=== PATIENT | male | born 1970 | race African-American/Black ===

== ENCOUNTER 2017-09-30 17:07 | Inpatient (IN) ==
[2017-09-30] MEDS ORDERED: SODIUM CHLORIDE 0.9% 500 ML IV STA (17:34)
[2017-09-30 17:41] LABS: Basophils # 0.1 10*3/uL (0.0-0.2); Basophils % 0.6 % (0.0-0.8); Eosinophils % 0.2 % (0.00-10.9); Hematocrit 52.4 VOL% (42.0-52.0); Hemoglobin 17.6 GM/DL (14.0-18.0); Immature Granulocytes % 0.6 %; Lymphocytes # 1.1 10*3/uL (1.4-4.0); Lymphocytes % 6.4 % (21.2-54.2); Mean Corpuscular HGB Conc 33.6 GM/DL (32-36); Mean Corpuscular Hemoglobin 29 PG (27-34); Mean Corpuscular Volume 87.6 FL (87-102); Mean Platelet Volume 11.3 FL (9.6-12.0); Monocytes # 2.1 10*3/uL (0.11-0.8); Monocytes % 12.4 % (1.7-12.7); Neutrophils # 13.5 10*3/uL (1.4-7.4); Neutrophils % 79.8 % (38.7-73.9); Platelet Count 201 T/CUMM (130-400); Red Blood Count 5.98 MC/CUMM (3.8-5.5); Red Cell Distribution Width 17.2 % (9.3-17.3)
[2017-09-30 18:03] LABS: Alanine Aminotransferase 37 U/L (16-61); Albumin 3.4 G/DL (3.4-5.0); Alkaline Phosphatase 235 U/L (45-117); Aspartate Amino Transferase 79 U/L (0-37); Blood Urea Nitrogen 21 MG/DL (7-18); Calcium 8.9 MG/DL (8.5-10.1); Glucose 102 MG/DL (74-106); Osmolality,Calculated 277.7 MOS/KG (273-304); Potassium 3.5 MMOL/L (3.5-5.1); Sodium 138 MMOL/L (136-145); Total Protein 7.9 G/DL (6.4-8.3)
[2017-09-30] MEDS ORDERED: ALBUTEROL NEB SOLN 5 MG/ML 20 ML/BOTTLE CONT NEB STA (18:26)
[2017-09-30] MEDS ORDERED: ASPIRIN EC 325 MG TABLET PO STA (18:26)
[2017-09-30] MEDS ORDERED: methylPREDNISolone SOD SUC 125 MG/2 ML VIAL IV STA (18:26)
[2017-09-30] MEDS ORDERED: ENOXAPARIN 100 MG/ML SYRINGE SUBCUT STA (18:26)
[2017-09-30] MEDS ORDERED: FUROSEMIDE 20 MG/2 ML VIAL IV STA (18:27)
[2017-09-30] MEDS ORDERED: ENOXAPARIN 60 MG/0.6 ML SYRINGE ONE (18:32)
[2017-09-30 18:35] LABS: Lactic Acid 5.7 MMOL/L (0.4-2.0)
[2017-09-30] MEDS ORDERED: SODIUM CHLORIDE 0.9% 100 ML IV ONE (19:14)
[2017-09-30] MEDS: cefTRIAXone 1,000 MG in SYRINGE 1 EACH IV SCH (19:17)
[2017-09-30] MEDS ORDERED: SODIUM CHLORIDE 0.9% 1,000 ML IV STA (20:30)
[2017-09-30] MEDS ORDERED: ALBUTEROL/IPRATROPIUM 3 ML NEB RESP TX PRN (20:30)
[2017-09-30] MEDS ORDERED: FUROSEMIDE 20 MG/2 ML VIAL IV ONE (20:30)
[2017-09-30] MEDS ORDERED: ALBUTEROL 2.5 MG/3 ML NEB RESP TX PRN (20:30)
[2017-09-30] MEDS ORDERED: SODIUM CHLORIDE 0.9% 1,000 ML IV SCH (20:30)
[2017-09-30] MEDS ORDERED: SODIUM CHLORIDE 0.9% 250 ML IV ONE (20:36)
[2017-09-30 20:41] LABS: ABG Base Excess -10.4 MMOL/L (-2.5-2.5); ABG HCO3 12.3 MMOL/L (20-26); ABG Oxygen Saturation 88.2 % (95-100); ABG PCO2 22.1 MM HG (35-48); ABG PH 7.363 (7.35-7.45); ABG PO2 66.2 MM HG (80-95); Allen Test Positive; Pt O2 Delivery Device BIPAP
[2017-09-30] MEDS: DOCUSATE SODIUM 100 MG CAPSULE PO SCH (20:54)
[2017-09-30 20:55] LABS: INR 1.3; Partial Thromboplastin Time 31.9 SECS (0-40)
[2017-09-30 21:54] LABS: CKMB % 7.7 %
[2017-09-30] MEDS ORDERED: ZALEPLON 5 MG CAPSULE PO PRN (22:00)
[2017-09-30] MEDS: AZITHROMYCIN INJ 500 MG in SODIUM CHLORIDE 0.9% 250 ML IV SCH (23:01)
[2017-09-30] MEDS ORDERED: LORazepam 2 MG/1 ML VIAL IV PRN (23:41)
[2017-10-01] MEDS ORDERED: ETOMIDATE 20 MG/10 ML VIAL IV ONE ×3 (00:08→00:48)
[2017-10-01] MEDS ORDERED: SUCCINYLCHOLINE 200 MG/10 ML VIAL ONE (00:08)
[2017-10-01] MEDS ORDERED: VECURONIUM 10 MG VIAL IV ONE ×2 (00:13→00:48)
[2017-10-01] MEDS ORDERED: FUROSEMIDE 100 MG/10 ML VIAL ONE (00:15)
[2017-10-01] MEDS ORDERED: PROPOFOL 1,000 MG/100 ML BOTTLE IV ONE (00:21)
[2017-10-01] MEDS ORDERED: NOREPINEPHRINE 4 MG/4 ML VIAL IV ONE (00:32)
[2017-10-01] MEDS ORDERED: FUROSEMIDE 40 MG/4 ML VIAL IV ONE (00:50)
[2017-10-01] MEDS: PROPOFOL 1,000 MG/100 ML BOTTLE IV SCH ×2 (01:00→19:24)
[2017-10-01] MEDS: fentaNYL INJ 1,250 MCG in SODIUM CHLORIDE 0.9% 225 ML IV PRN ×3 (01:00→19:34)
[2017-10-01] MEDS: NOREPINEPHRINE 16 MG in SODIUM CHLORIDE 0.9% 234 ML IV PRN ×3 (01:20→23:00)
[2017-10-01] MEDS: ALBUTEROL/IPRATROPIUM 3 ML NEB RESP TX SCH ×4 (01:56→19:50)
[2017-10-01] MEDS: methylPREDNISolone SOD SUC 40 MG/1 ML VIAL IV SCH ×2 (03:11→09:06)
[2017-10-01 03:16] LABS: ABG Base Excess -21.5 MMOL/L (-2.5-2.5); ABG HCO3 10.3 MMOL/L (20-26); ABG Oxygen Saturation 98.7 % (95-100); ABG PCO2 45.3 MM HG (35-48); ABG TCO2 10.6 MMOL/L (23-27)
[2017-10-01] MEDS ORDERED: DEXTROSE 50% 25 GM/50 ML VIAL IV ONE ×2 (03:17→03:23)
[2017-10-01 03:39] LABS: Risk Ratio 2.4
[2017-10-01 03:43] LABS: Albumin 3.3 G/DL (3.4-5.0); Bilirubin,Total 5.7 MG/DL (0.2-1.0); Calcium 8.2 MG/DL (8.5-10.1); Osmolality,Calculated 278.4 MOS/KG (273-304); Total Protein 7.8 G/DL (6.4-8.3)
[2017-10-01] MEDS ORDERED: DEXTROSE 50% 25 GM/50 ML VIAL IV PRN (03:46)
[2017-10-01 03:48] LABS: Apearance,Urine CLOUDY (Clear); Bacteria,Urine Moderate /HPF (Few); Bilirubin,Urine Negative (Negative); Blood, Urine Negative (Negative); Glucose,Urine (UA) 50 mg/dL (Negative); Hyaline Casts,Urine 53 /LPF (0-3); Ketones,Urine Negative (Negative); Mucus,Urine Occasional /LPF (Occasional); Nitrite,Urine Negative (Negative); Protein,Urine >=500 MG/DL; RBC,Urine 2 /HPF (0-4); Squamous Epithelial Cell,Urine Occasional /HPF (0-10); Urine Color Amber (Yellow); Urine Specific Gravity 1.013 (1.001-1.035); WBC,Urine 1 /HPF (0-6)
[2017-10-01 03:52] LABS: Basophils # 0.1 10*3/uL (0.0-0.2); Basophils % 0.6 % (0.0-0.8); Eosinophils # 0.1 10*3/uL (0.0-0.87); Eosinophils % 0.4 % (0.00-10.9); Hematocrit 56.7 VOL% (42.0-52.0); Immature Granulocytes % 3.5 %; Immature Granulocytes Absolute 0.79 #; Lymphocytes # 1.3 10*3/uL (1.4-4.0); Lymphocytes % 5.7 % (21.2-54.2); Mean Corpuscular Hemoglobin 29 PG (27-34); Mean Corpuscular Volume 93.1 FL (87-102); Mean Platelet Volume 11.7 FL (9.6-12.0); Monocytes # 1.6 10*3/uL (0.11-0.8); Monocytes % 6.9 % (1.7-12.7); NRBC # 0.02 10*3/uL; Neutrophils # 18.9 10*3/uL (1.4-7.4); Neutrophils % 82.9 % (38.7-73.9); Platelet Count 166 T/CUMM (130-400); Red Blood Count 6.09 MC/CUMM (3.8-5.5); Red Cell Distribution Width 16.8 % (9.3-17.3); White Blood Count 22.8 T/CUMM (4-12)
[2017-10-01] MEDS ORDERED: SODIUM BICARBONATE 50 MEQ/50 ML SYRINGE IV ONE ×2 (03:52→03:58)
[2017-10-01 03:57] LABS: Hemoglobin 17.6 GM/DL (14.0-18.0)
[2017-10-01 04:08] LABS: Band Neutrophils 2 % (0-10); Eosinophils 1 % (0-10); Lymphocytes 2 % (20-55); Platelet Estimate Normal; Segmented Neutrophils 91 % (50-85); Total Cells Counted 100
[2017-10-01 04:09] LABS: Hypochromasia Slight
[2017-10-01] MEDS: SODIUM BICARB INJ 150 MEQ in DEXTROSE 5% 850 ML IV SCH ×2 (04:12→19:24)
[2017-10-01] MEDS: HEPARIN DRIP 25,000 UNITS/500 ML PREMIX IV SCH (05:47)
[2017-10-01] MEDS ORDERED: FUROSEMIDE 40 MG/4 ML VIAL IV SCH (08:00)
[2017-10-01] MEDS: PANTOPRAZOLE 40 MG VIAL IV SCH (08:47)
[2017-10-01] MEDS: DOCUSATE SODIUM 100 MG CAPSULE PO SCH ×2 (08:48→22:11)
[2017-10-01] MEDS: CITALOPRAM 40 MG TABLET PO SCH (08:48)
[2017-10-01] MEDS: ASPIRIN EC 81 MG TABLET PO SCH (08:49)
[2017-10-01] MEDS ORDERED: CARVEDILOL CR 20 MG CAPSULE PO SCH (09:00)
[2017-10-01] MEDS ORDERED: ASPIRIN EC 325 MG TABLET PO SCH (09:00)
[2017-10-01] MEDS: HYDROCORTISONE 100 MG VIAL IV SCH ×3 (09:30→22:11)
[2017-10-01] MEDS: DIGOXIN 0.125 MG TABLET PO SCH (13:11)
[2017-10-01] MEDS: cefTRIAXone 1,000 MG in SYRINGE 1 EACH IV SCH (18:31)
[2017-10-01] MEDS ORDERED: AMIODARONE INJ 450 MG in DEXTROSE 5% 241 ML IV SCH ×2 (19:30→20:00)
[2017-10-01 19:50] LABS: Calcium 6.7 MG/DL (8.5-10.1); Osmolality,Calculated 295.7 MOS/KG (273-304)
[2017-10-01 19:52] LABS: Basophils # 0.2 10*3/uL (0.0-0.2); Basophils % 0.4 % (0.0-0.8); Eosinophils % 0.1 % (0.00-10.9); Hematocrit 49.9 VOL% (42.0-52.0); Immature Granulocytes % 4.5 %; Immature Granulocytes Absolute 1.69 #; Lymphocytes # 1.2 10*3/uL (1.4-4.0); Lymphocytes % 3.2 % (21.2-54.2); Mean Corpuscular HGB Conc 32.1 GM/DL (32-36); Mean Corpuscular Hemoglobin 29 PG (27-34); Mean Corpuscular Volume 91.4 FL (87-102); Monocytes % 7.9 % (1.7-12.7); NRBC # 0.02 10*3/uL; Neutrophils # 31.8 10*3/uL (1.4-7.4); Neutrophils % 83.9 % (38.7-73.9); Platelet Count 158 T/CUMM (130-400); Red Blood Count 5.46 MC/CUMM (3.8-5.5); Red Cell Distribution Width 16.2 % (9.3-17.3); White Blood Count 37.9 T/CUMM (4-12)
[2017-10-01] MEDS ORDERED: SODIUM CHLORIDE 0.45% 1,000 ML IV SCH (20:30)
[2017-10-01 20:31] LABS: Band Neutrophils 1 % (0-10); Lymphocytes 3 % (20-55); Segmented Neutrophils 92 % (50-85); Total Cells Counted 100
[2017-10-01 20:32] LABS: Burr Cells Slight; Platelet Estimate Adequate; Polychromasia Slight
[2017-10-01] MEDS: AZITHROMYCIN INJ 500 MG in SODIUM CHLORIDE 0.9% 250 ML IV SCH (22:22)
[2017-10-01] MEDS: PHENYLEPHRINE DRIP 40 MG/250 ML PREMIX IV PRN (23:30)
[2017-10-02] MEDS: SODIUM BICARB INJ 150 MEQ in DEXTROSE 5% 850 ML IV SCH (01:52)
[2017-10-02] MEDS: PROPOFOL 1,000 MG/100 ML BOTTLE IV SCH ×2 (01:52→19:19)
[2017-10-02] MEDS: ALBUTEROL/IPRATROPIUM 3 ML NEB RESP TX SCH ×4 (02:20→19:11)
[2017-10-02 03:00] LABS: Basophils # 0.1 10*3/uL (0.0-0.2); Basophils % 0.2 % (0.0-0.8); Hematocrit 47.7 VOL% (42.0-52.0); Hemoglobin 15.9 GM/DL (14.0-18.0); Immature Granulocytes % 3.3 %; Immature Granulocytes Absolute 1.34 #; Lymphocytes # 0.7 10*3/uL (1.4-4.0); Lymphocytes % 1.6 % (21.2-54.2); Mean Corpuscular HGB Conc 33.3 GM/DL (32-36); Mean Corpuscular Hemoglobin 30 PG (27-34); Mean Corpuscular Volume 88.8 FL (87-102); Mean Platelet Volume 11.2 FL (9.6-12.0); Monocytes # 2.8 10*3/uL (0.11-0.8); NRBC # 0.07 10*3/uL; Neutrophils # 35.3 10*3/uL (1.4-7.4); Neutrophils % 87.9 % (38.7-73.9); Platelet Count 132 T/CUMM (130-400); Red Blood Count 5.37 MC/CUMM (3.8-5.5); Red Cell Distribution Width 15.9 % (9.3-17.3)
[2017-10-02 03:02] LABS: ABG Base Excess -1.3 MMOL/L (-2.5-2.5); ABG HCO3 23.3 MMOL/L (20-26); ABG Oxygen Saturation 98.7 % (95-100); ABG PCO2 48.5 MM HG (35-48); ABG PH 7.329 (7.35-7.45); ABG TCO2 21.5 MMOL/L (23-27)
[2017-10-02 03:06] LABS: White Blood Count 40.2 T/CUMM (4-12)
[2017-10-02 03:19] LABS: Calcium 6.4 MG/DL (8.5-10.1); Osmolality,Calculated 297.7 MOS/KG (273-304); Potassium 3.7 MMOL/L (3.5-5.1)
[2017-10-02] MEDS: HYDROCORTISONE 100 MG VIAL IV SCH ×4 (03:41→21:40)
[2017-10-02 03:51] LABS: Band Neutrophils 5 % (0-10); Lymphocytes 1 % (20-55); Myelocytes 3 %; Segmented Neutrophils 88 % (50-85); Total Cells Counted 100
[2017-10-02 03:52] LABS: Anisocytosis 1+; Platelet Estimate Adequate; Poikilocytosis 1+
[2017-10-02] MEDS ORDERED: NOREPINEPHRINE 4 MG/4 ML VIAL IV ONE (05:40)
[2017-10-02] MEDS: AMIODARONE INJ 450 MG in DEXTROSE 5% 241 ML IV SCH ×2 (05:50→20:51)
[2017-10-02] MEDS: NOREPINEPHRINE 16 MG in SODIUM CHLORIDE 0.9% 234 ML IV PRN ×2 (06:28→15:58)
[2017-10-02] MEDS: HEPARIN DRIP 25,000 UNITS/500 ML PREMIX IV SCH (09:00)
[2017-10-02] MEDS: PANTOPRAZOLE 40 MG VIAL IV SCH (09:18)
[2017-10-02] MEDS: ASPIRIN EC 81 MG TABLET PO SCH (09:18)
[2017-10-02] MEDS: DOCUSATE SODIUM 100 MG CAPSULE PO SCH ×2 (09:18→21:46)
[2017-10-02] MEDS: CITALOPRAM 40 MG TABLET PO SCH (09:19)
[2017-10-02] MEDS: SODIUM CHLORIDE 0.9% 1,000 ML IV SCH ×2 (09:23→21:46)
[2017-10-02] MEDS: fentaNYL INJ 1,250 MCG in SODIUM CHLORIDE 0.9% 225 ML IV PRN (13:20)
[2017-10-02] MEDS: DIGOXIN 0.125 MG TABLET PO SCH (14:06)
[2017-10-02] MEDS: cefTRIAXone 1,000 MG in SYRINGE 1 EACH IV SCH (18:36)
[2017-10-02] MEDS: AZITHROMYCIN INJ 500 MG in SODIUM CHLORIDE 0.9% 250 ML IV SCH (21:47)
[2017-10-03] MEDS: ALBUTEROL/IPRATROPIUM 3 ML NEB RESP TX SCH ×4 (00:05→19:45)
[2017-10-03] MEDS: NOREPINEPHRINE 16 MG in SODIUM CHLORIDE 0.9% 234 ML IV PRN ×3 (01:00→20:00)
[2017-10-03] MEDS: PROPOFOL 1,000 MG/100 ML BOTTLE IV SCH ×2 (02:58→13:46)
[2017-10-03 03:08] LABS: ABG Base Excess -1.9 MMOL/L (-2.5-2.5); ABG HCO3 23.1 MMOL/L (20-26); ABG Oxygen Saturation 97.4 % (95-100); ABG PCO2 40.5 MM HG (35-48); ABG PH 7.374 (7.35-7.45); ABG PO2 105.5 MM HG (80-95); ABG TCO2 24.3 MMOL/L (23-27)
[2017-10-03 03:11] LABS: Basophils # 0.1 10*3/uL (0.0-0.2); Basophils % 0.2 % (0.0-0.8); Hemoglobin 15.6 GM/DL (14.0-18.0); Immature Granulocytes % 1.4 %; Immature Granulocytes Absolute 0.54 #; Lymphocytes # 0.4 10*3/uL (1.4-4.0); Lymphocytes % 1.1 % (21.2-54.2); Mean Corpuscular HGB Conc 33.2 GM/DL (32-36); Mean Corpuscular Hemoglobin 29 PG (27-34); Mean Platelet Volume 12.8 FL (9.6-12.0); Monocytes # 2.6 10*3/uL (0.11-0.8); Monocytes % 6.6 % (1.7-12.7); NRBC # 0.12 10*3/uL; Neutrophils # 35.4 10*3/uL (1.4-7.4); Neutrophils % 90.7 % (38.7-73.9); Platelet Count 108 T/CUMM (130-400); Red Blood Count 5.34 MC/CUMM (3.8-5.5); Red Cell Distribution Width 15.8 % (9.3-17.3)
[2017-10-03 03:31] LABS: Anisocytosis 1+; Band Neutrophils 7 % (0-10); Lymphocytes 1 % (20-55); Nucleated Red Blood Cells 1 (0-5); Poikilocytosis 1+; Polychromasia 1+; Segmented Neutrophils 89 % (50-85); Total Cells Counted 100
[2017-10-03 03:37] LABS: Calcium 6.3 MG/DL (8.5-10.1); Osmolality,Calculated 294.7 MOS/KG (273-304); Potassium 4.2 MMOL/L (3.5-5.1)
[2017-10-03] MEDS: fentaNYL INJ 1,250 MCG in SODIUM CHLORIDE 0.9% 225 ML IV PRN ×2 (04:02→20:30)
[2017-10-03] MEDS: HYDROCORTISONE 100 MG VIAL IV SCH ×4 (05:50→20:53)
[2017-10-03] MEDS: SODIUM CHLORIDE 0.9% 1,000 ML IV SCH ×2 (07:56→18:17)
[2017-10-03] MEDS: CITALOPRAM 40 MG TABLET PO SCH (10:12)
[2017-10-03] MEDS: PANTOPRAZOLE 40 MG VIAL IV SCH (10:12)
[2017-10-03] MEDS: HEPARIN 5,000 UNIT/1 ML VIAL SUBCUT SCH ×2 (10:13→17:23)
[2017-10-03] MEDS: ASPIRIN EC 81 MG TABLET PO SCH (10:13)
[2017-10-03] MEDS: DOCUSATE SODIUM 100 MG/10 ML UDCUP PER TUBE SCH ×2 (10:16→20:54)
[2017-10-03] MEDS: DOCUSATE SODIUM 100 MG CAPSULE PO SCH (10:47)
[2017-10-03] MEDS: DIGOXIN 0.125 MG TABLET PO SCH (13:46)
[2017-10-03] MEDS: AMIODARONE INJ 450 MG in DEXTROSE 5% 241 ML IV SCH (13:54)
[2017-10-03] MEDS: cefTRIAXone 1,000 MG in SYRINGE 1 EACH IV SCH (18:17)
[2017-10-03] MEDS: AZITHROMYCIN INJ 500 MG in SODIUM CHLORIDE 0.9% 250 ML IV SCH (20:55)
[2017-10-04] MEDS: ALBUTEROL/IPRATROPIUM 3 ML NEB RESP TX SCH ×4 (00:47→19:34)
[2017-10-04] MEDS: PROPOFOL 1,000 MG/100 ML BOTTLE IV SCH ×2 (02:14→08:51)
[2017-10-04] MEDS: HEPARIN 5,000 UNIT/1 ML VIAL SUBCUT SCH ×3 (02:35→16:26)
[2017-10-04] MEDS: HYDROCORTISONE 100 MG VIAL IV SCH ×4 (02:37→21:00)
[2017-10-04 03:04] LABS: Basophils # 0.1 10*3/uL (0.0-0.2); Basophils % 0.2 % (0.0-0.8); Hematocrit 43.8 VOL% (42.0-52.0); Hemoglobin 14.9 GM/DL (14.0-18.0); Immature Granulocytes % 1.4 %; Immature Granulocytes Absolute 0.42 #; Lymphocytes # 0.3 10*3/uL (1.4-4.0); Lymphocytes % 0.9 % (21.2-54.2); Mean Corpuscular Hemoglobin 30 PG (27-34); Mean Corpuscular Volume 86.7 FL (87-102); Mean Platelet Volume 12.1 FL (9.6-12.0); Monocytes # 1.6 10*3/uL (0.11-0.8); Monocytes % 5.4 % (1.7-12.7); NRBC # 0.04 10*3/uL; Neutrophils # 27.5 10*3/uL (1.4-7.4); Neutrophils % 92.1 % (38.7-73.9); Red Blood Count 5.05 MC/CUMM (3.8-5.5); Red Cell Distribution Width 15.7 % (9.3-17.3); White Blood Count 29.9 T/CUMM (4-12)
[2017-10-04 03:06] LABS: Platelet Count 85 T/CUMM (130-400)
[2017-10-04 03:18] LABS: Calcium 6.4 MG/DL (8.5-10.1); Osmolality,Calculated 301.3 MOS/KG (273-304); Potassium 4.1 MMOL/L (3.5-5.1)
[2017-10-04 03:28] LABS: ABG Base Excess -0.4 MMOL/L (-2.5-2.5); ABG Oxygen Saturation 97.6 % (95-100); ABG PCO2 43.6 MM HG (35-48); ABG PH 7.369 (7.35-7.45); ABG TCO2 21.5 MMOL/L (23-27); Allen Test Positive; Pt O2 Delivery Device Ventilator
[2017-10-04] MEDS: SODIUM CHLORIDE 0.9% 1,000 ML IV SCH ×2 (04:17→15:06)
[2017-10-04 04:51] LABS: Band Neutrophils 7 % (0-10); Lymphocytes 2 % (20-55); Platelet Estimate Decreased; Segmented Neutrophils 85 % (50-85); Total Cells Counted 100
[2017-10-04 04:52] LABS: Anisocytosis 1+; Macrocytosis 1+; Polychromasia Few
[2017-10-04 04:53] LABS: Ovalocytes Few
[2017-10-04] MEDS: PANTOPRAZOLE 40 MG VIAL IV SCH (08:35)
[2017-10-04] MEDS: CITALOPRAM 40 MG TABLET PO SCH (08:36)
[2017-10-04] MEDS: ASPIRIN EC 81 MG TABLET PO SCH (08:36)
[2017-10-04] MEDS: DOCUSATE SODIUM 100 MG/10 ML UDCUP PER TUBE SCH ×2 (08:36→20:58)
[2017-10-04] MEDS ORDERED: DEXTROSE 50% 25 GM/50 ML VIAL IV PRN (10:08)
[2017-10-04] MEDS ORDERED: GLUCAGON 1 MG VIAL IM PRN (10:08)
[2017-10-04] MEDS: DIGOXIN 0.125 MG TABLET PO SCH (13:22)
[2017-10-04] MEDS: INSULIN REGULAR 100 UNIT/ML SUBCUT SCH ×2 (13:22→17:36)
[2017-10-04] MEDS: fentaNYL INJ 1,250 MCG in SODIUM CHLORIDE 0.9% 225 ML IV PRN (13:24)
[2017-10-04] MEDS: cefTRIAXone 1,000 MG in SYRINGE 1 EACH IV SCH (18:24)
[2017-10-04] MEDS: AZITHROMYCIN INJ 500 MG in SODIUM CHLORIDE 0.9% 250 ML IV SCH (20:58)
[2017-10-05] MEDS: ALBUTEROL/IPRATROPIUM 3 ML NEB RESP TX SCH ×4 (01:35→19:48)
[2017-10-05] MEDS: INSULIN REGULAR 100 UNIT/ML SUBCUT SCH ×4 (02:31→18:34)
[2017-10-05] MEDS: SODIUM CHLORIDE 0.9% 1,000 ML IV SCH ×3 (02:33→17:18)
[2017-10-05] MEDS: PROPOFOL 1,000 MG/100 ML BOTTLE IV SCH ×4 (02:36→22:00)
[2017-10-05] MEDS: HYDROCORTISONE 100 MG VIAL IV SCH ×4 (02:40→21:32)
[2017-10-05] MEDS: HEPARIN 5,000 UNIT/1 ML VIAL SUBCUT SCH ×3 (02:40→18:43)
[2017-10-05 03:00] LABS: ABG Base Excess 0.9 MMOL/L (-2.5-2.5); ABG HCO3 25.2 MMOL/L (20-26); ABG Oxygen Saturation 99.5 % (95-100); ABG PCO2 37.8 MM HG (35-48); ABG PH 7.428 (7.35-7.45); ABG TCO2 21.4 MMOL/L (23-27); Allen Test Positive; Pt O2 Delivery Device Ventilator
[2017-10-05 05:51] LABS: Basophils % 0.1 % (0.0-0.8); Hematocrit 42.4 VOL% (42.0-52.0); Immature Granulocytes % 0.8 %; Immature Granulocytes Absolute 0.14 #; Lymphocytes # 0.2 10*3/uL (1.4-4.0); Lymphocytes % 1.1 % (21.2-54.2); Mean Corpuscular Hemoglobin 29 PG (27-34); Mean Corpuscular Volume 88.9 FL (87-102); Mean Platelet Volume 13.2 FL (9.6-12.0); Monocytes % 5.9 % (1.7-12.7); NRBC # 0.02 10*3/uL; Neutrophils # 15.8 10*3/uL (1.4-7.4); Neutrophils % 92.1 % (38.7-73.9); Platelet Count 55 T/CUMM (130-400); Red Blood Count 4.77 MC/CUMM (3.8-5.5); Red Cell Distribution Width 15.6 % (9.3-17.3); White Blood Count 17.2 T/CUMM (4-12)
[2017-10-05] MEDS: fentaNYL INJ 1,250 MCG in SODIUM CHLORIDE 0.9% 225 ML IV PRN (06:05)
[2017-10-05] MEDS: NOREPINEPHRINE 16 MG in SODIUM CHLORIDE 0.9% 234 ML IV PRN (06:05)
[2017-10-05 06:11] LABS: Calcium 6.9 MG/DL (8.5-10.1); Osmolality,Calculated 309.3 MOS/KG (273-304); Potassium 3.6 MMOL/L (3.5-5.1)
[2017-10-05 06:23] LABS: Band Neutrophils 8 % (0-10); Eosinophils 1 % (0-10); Lymphocytes 3 % (20-55); Platelet Estimate Decreased; Segmented Neutrophils 85 % (50-85); Total Cells Counted 100
[2017-10-05 06:24] LABS: Anisocytosis Slight; Macrocytosis Slight; Poikilocytosis Slight
[2017-10-05] MEDS ORDERED: CALCIUM GLUCONATE 2,000 MG in SODIUM CHLORIDE 0.9% 100 ML IV PRN (11:00)
[2017-10-05] MEDS: CITALOPRAM 40 MG TABLET PO SCH (11:26)
[2017-10-05] MEDS: ASPIRIN EC 81 MG TABLET PO SCH (11:26)
[2017-10-05] MEDS: MULTIVITAMIN (BEROCCA) TABLET PER TUBE SCH (11:26)
[2017-10-05] MEDS: DOCUSATE SODIUM 100 MG/10 ML UDCUP PER TUBE SCH ×2 (11:26→21:32)
[2017-10-05] MEDS: PANTOPRAZOLE 40 MG VIAL IV SCH (11:27)
[2017-10-05] MEDS: DIGOXIN 0.125 MG TABLET PO SCH (12:43)
[2017-10-05] MEDS: AZITHROMYCIN INJ 500 MG in SODIUM CHLORIDE 0.9% 250 ML IV SCH (21:33)
[2017-10-06] MEDS: ALBUTEROL/IPRATROPIUM 3 ML NEB RESP TX SCH ×4 (00:07→21:22)
[2017-10-06] MEDS: INSULIN REGULAR 100 UNIT/ML SUBCUT SCH ×4 (01:59→18:14)
[2017-10-06] MEDS: HEPARIN 5,000 UNIT/1 ML VIAL SUBCUT SCH ×3 (02:00→17:21)
[2017-10-06] MEDS: SODIUM CHLORIDE 0.9% 1,000 ML IV SCH ×2 (02:01→13:16)
[2017-10-06] MEDS: HYDROCORTISONE 100 MG VIAL IV SCH ×2 (02:03→11:13)
[2017-10-06 03:51] LABS: ABG Base Excess -0.3 MMOL/L (-2.5-2.5); ABG HCO3 24.3 MMOL/L (20-26); ABG Oxygen Saturation 95.1 % (95-100); ABG PCO2 39.5 MM HG (35-48); ABG PH 7.406 (7.35-7.45); ABG PO2 82.7 MM HG (80-95); ABG TCO2 25.5 MMOL/L (23-27)
[2017-10-06 04:52] LABS: Basophils % 0.1 % (0.0-0.8); Hematocrit 43.3 VOL% (42.0-52.0); Hemoglobin 14.2 GM/DL (14.0-18.0); Immature Granulocytes % 0.4 %; Immature Granulocytes Absolute 0.06 #; Lymphocytes # 0.1 10*3/uL (1.4-4.0); Lymphocytes % 0.8 % (21.2-54.2); Mean Corpuscular HGB Conc 32.8 GM/DL (32-36); Mean Corpuscular Hemoglobin 29 PG (27-34); Mean Corpuscular Volume 89.3 FL (87-102); Mean Platelet Volume 13.8 FL (9.6-12.0); Monocytes # 1.2 10*3/uL (0.11-0.8); Monocytes % 7.3 % (1.7-12.7); NRBC # 0.04 10*3/uL; Neutrophils # 14.5 10*3/uL (1.4-7.4); Neutrophils % 91.4 % (38.7-73.9); Red Blood Count 4.85 MC/CUMM (3.8-5.5); White Blood Count 15.8 T/CUMM (4-12)
[2017-10-06 05:02] LABS: Platelet Count 66 T/CUMM (130-400)
[2017-10-06 05:21] LABS: Calcium 8.1 MG/DL (8.5-10.1); Potassium 3.7 MMOL/L (3.5-5.1); Prealbumin 8.8 MG/DL (20-40)
[2017-10-06 05:28] LABS: Anisocytosis 1+; Band Neutrophils 6 % (0-10); Lymphocytes 1 % (20-55); Macrocytosis 1+; Metamyelocytes 1 %; Platelet Estimate Decreased; Segmented Neutrophils 85 % (50-85); Total Cells Counted 100
[2017-10-06 05:29] LABS: Hypochromasia 2+
[2017-10-06] MEDS: PROPOFOL 1,000 MG/100 ML BOTTLE IV SCH ×4 (06:25→20:14)
[2017-10-06] MEDS: fentaNYL INJ 1,250 MCG in SODIUM CHLORIDE 0.9% 225 ML IV PRN ×2 (06:26→15:39)
[2017-10-06] MEDS: MULTIVITAMIN (BEROCCA) TABLET PER TUBE SCH (08:42)
[2017-10-06] MEDS: ASPIRIN EC 81 MG TABLET PO SCH (08:42)
[2017-10-06] MEDS: PANTOPRAZOLE 40 MG VIAL IV SCH (08:42)
[2017-10-06] MEDS: CITALOPRAM 40 MG TABLET PO SCH (08:42)
[2017-10-06] MEDS: DOCUSATE SODIUM 100 MG/10 ML UDCUP PER TUBE SCH ×2 (08:42→20:47)
[2017-10-06] MEDS: DIGOXIN 0.125 MG TABLET PO SCH (12:06)
[2017-10-06] MEDS: methylPREDNISolone SOD SUC 40 MG/1 ML VIAL IV SCH ×2 (14:41→21:29)
[2017-10-06] MEDS: SODIUM CHLORIDE 0.45% 1,000 ML IV SCH (16:14)
[2017-10-06] MEDS: AZITHROMYCIN INJ 500 MG in SODIUM CHLORIDE 0.9% 250 ML IV SCH (21:25)
[2017-10-07] MEDS: INSULIN REGULAR 100 UNIT/ML SUBCUT SCH ×4 (00:12→18:06)
[2017-10-07] MEDS: ALBUTEROL/IPRATROPIUM 3 ML NEB RESP TX SCH ×4 (00:55→19:44)
[2017-10-07] MEDS: HEPARIN 5,000 UNIT/1 ML VIAL SUBCUT SCH ×3 (02:31→18:28)
[2017-10-07] MEDS: PROPOFOL 1,000 MG/100 ML BOTTLE IV SCH ×2 (02:58→12:12)
[2017-10-07] MEDS: SODIUM CHLORIDE 0.45% 1,000 ML IV SCH (03:49)
[2017-10-07 04:44] LABS: Hemoglobin 14.2 GM/DL (14.0-18.0); Immature Granulocytes % 0.6 %; Immature Granulocytes Absolute 0.06 #; Lymphocytes # 0.2 10*3/uL (1.4-4.0); Lymphocytes % 1.7 % (21.2-54.2); Mean Corpuscular HGB Conc 32.3 GM/DL (32-36); Mean Corpuscular Hemoglobin 29 PG (27-34); Mean Corpuscular Volume 89.1 FL (87-102); Monocytes # 0.4 10*3/uL (0.11-0.8); Monocytes % 4.5 % (1.7-12.7); Neutrophils # 8.9 10*3/uL (1.4-7.4); Neutrophils % 93.2 % (38.7-73.9); Platelet Count 66 T/CUMM (130-400); Red Blood Count 4.94 MC/CUMM (3.8-5.5); Red Cell Distribution Width 15.9 % (9.3-17.3); White Blood Count 9.6 T/CUMM (4-12)
[2017-10-07 05:25] LABS: Hypochromasia 1+; Lymphocytes 3 % (20-55); Platelet Estimate Decreased; Segmented Neutrophils 97 % (50-85); Total Cells Counted 100
[2017-10-07 05:26] LABS: Macrocytosis Slight
[2017-10-07 05:35] LABS: Calcium 8.5 MG/DL (8.5-10.1); Osmolality,Calculated 321.4 MOS/KG (273-304); Potassium 3.7 MMOL/L (3.5-5.1)
[2017-10-07] MEDS: methylPREDNISolone SOD SUC 40 MG/1 ML VIAL IV SCH ×3 (06:18→23:01)
[2017-10-07] MEDS: cefTRIAXone 1,000 MG in SYRINGE 1 EACH IV SCH (08:53)
[2017-10-07] MEDS: CITALOPRAM 40 MG TABLET PO SCH (08:54)
[2017-10-07] MEDS: MULTIVITAMIN (BEROCCA) TABLET PER TUBE SCH (08:54)
[2017-10-07] MEDS: ASPIRIN EC 81 MG TABLET PO SCH (08:54)
[2017-10-07] MEDS: DOCUSATE SODIUM 100 MG/10 ML UDCUP PER TUBE SCH ×2 (08:54→20:18)
[2017-10-07] MEDS: RANITIDINE 150 MG/10 ML 30 ML BOTTLE PER TUBE SCH ×2 (09:02→20:18)
[2017-10-07] MEDS: fentaNYL INJ 1,250 MCG in SODIUM CHLORIDE 0.9% 225 ML IV PRN (11:00)
[2017-10-07] MEDS: DEXTROSE 5% KCL 20 MEQ 20 MEQ/1,000 ML BAG IV SCH ×2 (12:18→23:01)
[2017-10-07] MEDS: DIGOXIN 0.125 MG TABLET PO SCH (18:27)
[2017-10-07] MEDS: PHENYLEPHRINE DRIP 40 MG/250 ML PREMIX IV PRN (21:05)
[2017-10-08] MEDS: ALBUTEROL/IPRATROPIUM 3 ML NEB RESP TX SCH ×4 (00:08→19:36)
[2017-10-08] MEDS: HEPARIN 5,000 UNIT/1 ML VIAL SUBCUT SCH ×3 (00:28→18:23)
[2017-10-08] MEDS: INSULIN REGULAR 100 UNIT/ML SUBCUT SCH ×5 (00:28→23:22)
[2017-10-08] MEDS: PROPOFOL 1,000 MG/100 ML BOTTLE IV SCH ×2 (02:16→21:10)
[2017-10-08 04:02] LABS: ABG Base Excess 1.8 MMOL/L (-2.5-2.5); ABG HCO3 25.9 MMOL/L (20-26); ABG Oxygen Saturation 92.7 % (95-100); ABG PCO2 48.6 MM HG (35-48); ABG PO2 71.6 MM HG (80-95); Allen Test Positive; Pt O2 Delivery Device Ventilator
[2017-10-08 05:15] LABS: Hematocrit 46.2 VOL% (42.0-52.0); Hemoglobin 15.1 GM/DL (14.0-18.0); Immature Granulocytes % 0.7 %; Immature Granulocytes Absolute 0.07 #; Lymphocytes # 0.2 10*3/uL (1.4-4.0); Lymphocytes % 1.8 % (21.2-54.2); Mean Corpuscular HGB Conc 32.7 GM/DL (32-36); Mean Corpuscular Hemoglobin 29 PG (27-34); Mean Corpuscular Volume 89.4 FL (87-102); Monocytes # 0.5 10*3/uL (0.11-0.8); Monocytes % 4.8 % (1.7-12.7); NRBC # 0.02 10*3/uL; Neutrophils % 92.7 % (38.7-73.9); Red Blood Count 5.17 MC/CUMM (3.8-5.5); Red Cell Distribution Width 15.9 % (9.3-17.3); White Blood Count 9.8 T/CUMM (4-12)
[2017-10-08 05:16] LABS: Platelet Count 82 T/CUMM (130-400)
[2017-10-08 05:33] LABS: INR 1.1; PT Patient Result 11.9 SECS
[2017-10-08 05:39] LABS: Band Neutrophils 1 % (0-10); Hypochromasia 1+; Lymphocytes 3 % (20-55); Macrocytosis Slight; Nucleated Red Blood Cells 2 (0-5); Platelet Estimate Decreased; Segmented Neutrophils 91 % (50-85); Total Cells Counted 100
[2017-10-08] MEDS: methylPREDNISolone SOD SUC 40 MG/1 ML VIAL IV SCH ×3 (06:23→23:16)
[2017-10-08] MEDS: SODIUM CHLORIDE 0.45% 1,000 ML IV SCH ×2 (07:38→10:18)
[2017-10-08 08:18] LABS: Calcium 8.8 MG/DL (8.5-10.1); Osmolality,Calculated 312.1 MOS/KG (273-304); Potassium 4.5 MMOL/L (3.5-5.1)
[2017-10-08] MEDS: DOCUSATE SODIUM 100 MG/10 ML UDCUP PER TUBE SCH ×2 (09:14→23:16)
[2017-10-08] MEDS: MULTIVITAMIN (BEROCCA) TABLET PER TUBE SCH (10:16)
[2017-10-08] MEDS: cefTRIAXone 1,000 MG in SYRINGE 1 EACH IV SCH (10:17)
[2017-10-08] MEDS: ASPIRIN EC 81 MG TABLET PO SCH (10:17)
[2017-10-08] MEDS: CITALOPRAM 40 MG TABLET PO SCH (10:17)
[2017-10-08] MEDS: RANITIDINE 150 MG/10 ML 30 ML BOTTLE PER TUBE SCH ×2 (10:19→23:16)
[2017-10-08] MEDS: DIGOXIN 0.125 MG TABLET PO SCH (13:47)
[2017-10-08] MEDS: DEXTROSE 5% KCL 20 MEQ 20 MEQ/1,000 ML BAG IV SCH (16:34)
[2017-10-08] MEDS: fentaNYL INJ 1,250 MCG in SODIUM CHLORIDE 0.9% 225 ML IV PRN (18:18)
[2017-10-08] MEDS ORDERED: NYSTATIN 500,000 UNIT/5 ML UDCUP SWISH/SWAL PRN (20:09)
[2017-10-09] MEDS: ALBUTEROL/IPRATROPIUM 3 ML NEB RESP TX SCH ×4 (00:49→19:45)
[2017-10-09] MEDS: HEPARIN 5,000 UNIT/1 ML VIAL SUBCUT SCH ×3 (02:50→17:59)
[2017-10-09] MEDS: INSULIN REGULAR 100 UNIT/ML SUBCUT SCH (06:46)
[2017-10-09] MEDS: SODIUM CHLORIDE 0.45% 1,000 ML IV SCH (06:46)
[2017-10-09] MEDS: methylPREDNISolone SOD SUC 40 MG/1 ML VIAL IV SCH ×3 (06:47→23:00)
[2017-10-09 06:51] LABS: Calcium 8.3 MG/DL (8.5-10.1); Osmolality,Calculated 311.9 MOS/KG (273-304)
[2017-10-09] MEDS: PROPOFOL 1,000 MG/100 ML BOTTLE IV SCH (08:08)
[2017-10-09] MEDS: cefTRIAXone 1,000 MG in SYRINGE 1 EACH IV SCH (08:26)
[2017-10-09] MEDS: ONDANSETRON 4 MG/2 ML VIAL IV PRN ×2 (08:55→15:08)
[2017-10-09] MEDS: DOCUSATE SODIUM 100 MG/10 ML UDCUP PER TUBE SCH (08:57)
[2017-10-09] MEDS: DOCUSATE SODIUM 100 MG CAPSULE PO SCH ×2 (10:10→20:50)
[2017-10-09] MEDS: ASPIRIN EC 81 MG TABLET PO SCH (10:11)
[2017-10-09] MEDS: FAMOTIDINE 20 MG TABLET PO SCH ×2 (10:11→20:51)
[2017-10-09] MEDS: CITALOPRAM 40 MG TABLET PO SCH (10:12)
[2017-10-09] MEDS: RANITIDINE 150 MG/10 ML 30 ML BOTTLE PER TUBE SCH (10:13)
[2017-10-09] MEDS: MULTIVITAMIN (BEROCCA) TABLET PER TUBE SCH (10:16)
[2017-10-09] MEDS: DIGOXIN 0.125 MG TABLET PO SCH (13:10)
[2017-10-09] MEDS: MORPHINE 4 MG/1 ML VIAL IV PRN (22:25)
[2017-10-10] MEDS: ALBUTEROL/IPRATROPIUM 3 ML NEB RESP TX SCH ×4 (00:33→20:35)
[2017-10-10] MEDS: HEPARIN 5,000 UNIT/1 ML VIAL SUBCUT SCH ×3 (01:50→16:22)
[2017-10-10] MEDS: SODIUM CHLORIDE 0.45% 1,000 ML IV SCH ×2 (02:46→21:35)
[2017-10-10 03:30] LABS: ABG Oxygen Saturation 91.9 % (95-100); ABG PCO2 41.3 MM HG (35-48); ABG PH 7.419 (7.35-7.45); ABG PO2 66.7 MM HG (80-95); ABG TCO2 22.6 MMOL/L (23-27)
[2017-10-10 05:09] LABS: Hematocrit 44.7 VOL% (42.0-52.0); Hemoglobin 14.5 GM/DL (14.0-18.0); Immature Granulocytes % 0.3 %; Immature Granulocytes Absolute 0.02 #; Lymphocytes # 0.2 10*3/uL (1.4-4.0); Lymphocytes % 3.3 % (21.2-54.2); Mean Corpuscular HGB Conc 32.4 GM/DL (32-36); Mean Corpuscular Hemoglobin 29 PG (27-34); Mean Corpuscular Volume 88.2 FL (87-102); Mean Platelet Volume 13.4 FL (9.6-12.0); Monocytes # 0.7 10*3/uL (0.11-0.8); Monocytes % 11.2 % (1.7-12.7); Neutrophils # 5.6 10*3/uL (1.4-7.4); Neutrophils % 85.2 % (38.7-73.9); Platelet Count 83 T/CUMM (130-400); Red Blood Count 5.07 MC/CUMM (3.8-5.5); Red Cell Distribution Width 15.8 % (9.3-17.3); White Blood Count 6.6 T/CUMM (4-12)
[2017-10-10 05:27] LABS: Calcium 8.5 MG/DL (8.5-10.1); Osmolality,Calculated 311.1 MOS/KG (273-304); Potassium 4.4 MMOL/L (3.5-5.1)
[2017-10-10 06:58] LABS: Lymphocytes 14 % (20-55); Platelet Estimate Decreased; Segmented Neutrophils 86 % (50-85); Total Cells Counted 100
[2017-10-10] MEDS: methylPREDNISolone SOD SUC 40 MG/1 ML VIAL IV SCH ×3 (07:28→21:36)
[2017-10-10] MEDS: ASPIRIN EC 81 MG TABLET PO SCH (09:14)
[2017-10-10] MEDS: cefTRIAXone 1,000 MG in SYRINGE 1 EACH IV SCH (09:14)
[2017-10-10] MEDS: MULTIVITAMIN (BEROCCA) TABLET PER TUBE SCH (09:14)
[2017-10-10] MEDS: DOCUSATE SODIUM 100 MG CAPSULE PO SCH ×2 (09:14→20:01)
[2017-10-10] MEDS: FAMOTIDINE 20 MG TABLET PO SCH ×2 (09:14→20:01)
[2017-10-10] MEDS: CITALOPRAM 40 MG TABLET PO SCH (09:14)
[2017-10-10] MEDS: DIGOXIN 0.125 MG TABLET PO SCH (13:34)
[2017-10-11] MEDS: HEPARIN 5,000 UNIT/1 ML VIAL SUBCUT SCH ×3 (01:12→17:11)
[2017-10-11] MEDS: ALBUTEROL/IPRATROPIUM 3 ML NEB RESP TX SCH ×4 (02:10→19:24)
[2017-10-11 04:23] LABS: ABG Base Excess 2.9 MMOL/L (-2.5-2.5); ABG HCO3 26.8 MMOL/L (20-26); ABG PCO2 40.1 MM HG (35-48); ABG PH 7.439 (7.35-7.45); ABG TCO2 23.3 MMOL/L (23-27)
[2017-10-11 04:29] LABS: Hematocrit 42.2 VOL% (42.0-52.0); Hemoglobin 13.9 GM/DL (14.0-18.0); Immature Granulocytes % 0.4 %; Immature Granulocytes Absolute 0.03 #; Lymphocytes # 0.2 10*3/uL (1.4-4.0); Lymphocytes % 2.4 % (21.2-54.2); Mean Corpuscular HGB Conc 32.9 GM/DL (32-36); Mean Corpuscular Hemoglobin 29 PG (27-34); Mean Corpuscular Volume 88.7 FL (87-102); Mean Platelet Volume 12.1 FL (9.6-12.0); Monocytes # 0.4 10*3/uL (0.11-0.8); Neutrophils # 7.6 10*3/uL (1.4-7.4); Neutrophils % 92.2 % (38.7-73.9); Platelet Count 91 T/CUMM (130-400); Red Blood Count 4.76 MC/CUMM (3.8-5.5); Red Cell Distribution Width 15.2 % (9.3-17.3); White Blood Count 8.2 T/CUMM (4-12)
[2017-10-11 04:57] LABS: Calcium 8.7 MG/DL (8.5-10.1)
[2017-10-11 04:58] LABS: Osmolality,Calculated 302.8 MOS/KG (273-304); Potassium 4.8 MMOL/L (3.5-5.1)
[2017-10-11 05:00] LABS: Lymphocytes 5 % (20-55); Platelet Estimate Decreased; Segmented Neutrophils 94 % (50-85); Total Cells Counted 100
[2017-10-11] MEDS: methylPREDNISolone SOD SUC 40 MG/1 ML VIAL IV SCH (06:17)
[2017-10-11] MEDS: DOCUSATE SODIUM 100 MG CAPSULE PO SCH ×2 (08:34→22:22)
[2017-10-11] MEDS: ASPIRIN EC 81 MG TABLET PO SCH (08:34)
[2017-10-11] MEDS: MULTIVITAMIN (BEROCCA) TABLET PER TUBE SCH (08:34)
[2017-10-11] MEDS: cefTRIAXone 1,000 MG in SYRINGE 1 EACH IV SCH (08:34)
[2017-10-11] MEDS: FAMOTIDINE 20 MG TABLET PO SCH ×2 (08:35→22:25)
[2017-10-11] MEDS: CITALOPRAM 40 MG TABLET PO SCH (08:35)
[2017-10-11] MEDS ORDERED: LORazepam 2 MG/1 ML VIAL IV PRN (08:55)
[2017-10-11] MEDS: DIGOXIN 0.125 MG TABLET PO SCH (14:06)
[2017-10-11] MEDS: methylPREDNISolone SOD SUC 125 MG/2 ML VIAL IV SCH ×2 (15:33→18:25)
[2017-10-11] MEDS: SODIUM CHLORIDE 0.45% 1,000 ML IV SCH (18:27)
[2017-10-12] MEDS: ALBUTEROL/IPRATROPIUM 3 ML NEB RESP TX SCH ×4 (00:40→19:26)
[2017-10-12] MEDS: HEPARIN 5,000 UNIT/1 ML VIAL SUBCUT SCH ×3 (03:57→16:18)
[2017-10-12 04:31] LABS: ABG Base Excess 1.6 MMOL/L (-2.5-2.5); ABG HCO3 25.7 MMOL/L (20-26); ABG Oxygen Saturation 90.6 % (95-100); ABG PCO2 40.2 MM HG (35-48); ABG PH 7.421 (7.35-7.45); ABG PO2 63.8 MM HG (80-95); ABG TCO2 22.4 MMOL/L (23-27)
[2017-10-12 05:53] LABS: Calcium 9.1 MG/DL (8.5-10.1); Osmolality,Calculated 299.3 MOS/KG (273-304); Potassium 4.9 MMOL/L (3.5-5.1)
[2017-10-12] MEDS: methylPREDNISolone SOD SUC 125 MG/2 ML VIAL IV SCH ×2 (08:02→18:22)
[2017-10-12] MEDS: cefTRIAXone 1,000 MG in SYRINGE 1 EACH IV SCH (09:19)
[2017-10-12] MEDS: CITALOPRAM 40 MG TABLET PO SCH (09:20)
[2017-10-12] MEDS: ASPIRIN EC 81 MG TABLET PO SCH (09:20)
[2017-10-12] MEDS: FAMOTIDINE 20 MG TABLET PO SCH ×2 (09:20→20:12)
[2017-10-12] MEDS: MULTIVITAMIN (BEROCCA) TABLET PER TUBE SCH (09:20)
[2017-10-12] MEDS: DOCUSATE SODIUM 100 MG CAPSULE PO SCH ×2 (09:21→20:11)
[2017-10-12] MEDS: DIGOXIN 0.125 MG TABLET PO SCH (13:51)
[2017-10-12] MEDS: SODIUM CHLORIDE 0.45% 1,000 ML IV SCH (16:20)
[2017-10-12] MEDS: MORPHINE 4 MG/1 ML VIAL IV PRN (17:12)
[2017-10-13] MEDS: ALBUTEROL/IPRATROPIUM 3 ML NEB RESP TX SCH ×4 (00:44→19:06)
[2017-10-13] MEDS: HEPARIN 5,000 UNIT/1 ML VIAL SUBCUT SCH ×3 (01:16→16:18)
[2017-10-13] MEDS: methylPREDNISolone SOD SUC 125 MG/2 ML VIAL IV SCH ×2 (06:13→18:01)
[2017-10-13] MEDS ORDERED: FUROSEMIDE 40 MG/4 ML VIAL IV ONE (08:20)
[2017-10-13] MEDS: cefTRIAXone 1,000 MG in SYRINGE 1 EACH IV SCH (09:10)
[2017-10-13] MEDS: FAMOTIDINE 20 MG TABLET PO SCH ×2 (09:10→21:43)
[2017-10-13] MEDS: ASPIRIN EC 81 MG TABLET PO SCH (09:11)
[2017-10-13] MEDS: MULTIVITAMIN (BEROCCA) TABLET PER TUBE SCH (09:11)
[2017-10-13] MEDS: DOCUSATE SODIUM 100 MG CAPSULE PO SCH ×2 (09:11→21:42)
[2017-10-13] MEDS: CITALOPRAM 40 MG TABLET PO SCH (09:11)
[2017-10-13] MEDS: DIGOXIN 0.125 MG TABLET PO SCH (13:48)
[2017-10-13] MEDS: FUROSEMIDE 40 MG/4 ML VIAL IV SCH (16:19)
[2017-10-13] MEDS: ALBUMIN 25% 25 GM in PREMIX 1 EACH IV SCH (16:20)
[2017-10-14] MEDS: ALBUMIN 25% 25 GM in PREMIX 1 EACH IV SCH ×4 (00:18→23:56)
[2017-10-14] MEDS: HEPARIN 5,000 UNIT/1 ML VIAL SUBCUT SCH ×3 (00:18→16:46)
[2017-10-14] MEDS: ALBUTEROL/IPRATROPIUM 3 ML NEB RESP TX SCH ×4 (00:54→19:54)
[2017-10-14 03:23] LABS: Basophils % 0.1 % (0.0-0.8); Hemoglobin 13.5 GM/DL (14.0-18.0); Immature Granulocytes % 0.5 %; Immature Granulocytes Absolute 0.07 #; Lymphocytes # 0.1 10*3/uL (1.4-4.0); Mean Corpuscular HGB Conc 32.9 GM/DL (32-36); Mean Corpuscular Hemoglobin 29 PG (27-34); Monocytes # 0.6 10*3/uL (0.11-0.8); Monocytes % 4.2 % (1.7-12.7); Neutrophils # 12.7 10*3/uL (1.4-7.4); Neutrophils % 94.2 % (38.7-73.9); Platelet Count 103 T/CUMM (130-400); Red Blood Count 4.71 MC/CUMM (3.8-5.5); Red Cell Distribution Width 14.9 % (9.3-17.3); White Blood Count 13.4 T/CUMM (4-12)
[2017-10-14 04:15] LABS: Calcium 9.1 MG/DL (8.5-10.1); Osmolality,Calculated 300.5 MOS/KG (273-304); Potassium 4.4 MMOL/L (3.5-5.1)
[2017-10-14 04:36] LABS: Lymphocytes 3 % (20-55); Platelet Estimate Normal; Segmented Neutrophils 96 % (50-85); Total Cells Counted 100
[2017-10-14] MEDS: methylPREDNISolone SOD SUC 125 MG/2 ML VIAL IV SCH ×2 (06:13→17:34)
[2017-10-14] MEDS: cefTRIAXone 1,000 MG in SYRINGE 1 EACH IV SCH (08:52)
[2017-10-14] MEDS: FUROSEMIDE 40 MG/4 ML VIAL IV SCH ×2 (08:52→16:16)
[2017-10-14] MEDS: MULTIVITAMIN (BEROCCA) TABLET PER TUBE SCH (08:57)
[2017-10-14] MEDS: FAMOTIDINE 20 MG TABLET PO SCH ×2 (08:57→23:55)
[2017-10-14] MEDS: DOCUSATE SODIUM 100 MG CAPSULE PO SCH ×2 (08:57→23:55)
[2017-10-14] MEDS: CITALOPRAM 40 MG TABLET PO SCH (08:57)
[2017-10-14] MEDS: ASPIRIN EC 81 MG TABLET PO SCH (08:57)
[2017-10-14] MEDS: DIGOXIN 0.125 MG TABLET PO SCH (14:43)
[2017-10-15] MEDS: ALBUTEROL/IPRATROPIUM 3 ML NEB RESP TX SCH ×3 (00:12→13:15)
[2017-10-15] MEDS: HEPARIN 5,000 UNIT/1 ML VIAL SUBCUT SCH ×3 (00:18→18:25)
[2017-10-15 05:15] LABS: Basophils % 0.1 % (0.0-0.8); Hematocrit 37.4 VOL% (42.0-52.0); Hemoglobin 12.7 GM/DL (14.0-18.0); Immature Granulocytes % 0.5 %; Immature Granulocytes Absolute 0.06 #; Lymphocytes # 0.1 10*3/uL (1.4-4.0); Mean Corpuscular Hemoglobin 29 PG (27-34); Mean Corpuscular Volume 85.2 FL (87-102); Monocytes # 0.6 10*3/uL (0.11-0.8); Monocytes % 4.6 % (1.7-12.7); Neutrophils # 11.8 10*3/uL (1.4-7.4); Neutrophils % 93.8 % (38.7-73.9); Red Blood Count 4.39 MC/CUMM (3.8-5.5); White Blood Count 12.5 T/CUMM (4-12)
[2017-10-15 05:19] LABS: Platelet Count 82 T/CUMM (130-400)
[2017-10-15 05:36] LABS: Albumin 3.3 G/DL (3.4-5.0); Bilirubin,Total 1.2 MG/DL (0.2-1.0); Calcium 9.1 MG/DL (8.5-10.1); Osmolality,Calculated 304.1 MOS/KG (273-304); Total Protein 5.6 G/DL (6.4-8.3)
[2017-10-15 05:45] LABS: Hypochromasia 1+; Lymphocytes 3 % (20-55); Platelet Estimate Decreased; Segmented Neutrophils 94 % (50-85); Total Cells Counted 100
[2017-10-15] MEDS: methylPREDNISolone SOD SUC 125 MG/2 ML VIAL IV SCH ×2 (06:07→18:33)
[2017-10-15] MEDS: ALBUMIN 25% 25 GM in PREMIX 1 EACH IV SCH (08:41)
[2017-10-15] MEDS: FAMOTIDINE 20 MG TABLET PO SCH (09:57)
[2017-10-15] MEDS: CITALOPRAM 40 MG TABLET PO SCH (09:57)
[2017-10-15] MEDS: ASPIRIN EC 81 MG TABLET PO SCH (09:57)
[2017-10-15] MEDS: MULTIVITAMIN (BEROCCA) TABLET PER TUBE SCH (09:57)
[2017-10-15] MEDS: FUROSEMIDE 40 MG/4 ML VIAL IV SCH (09:59)
[2017-10-15] MEDS: DIGOXIN 0.125 MG TABLET PO SCH (13:40)
[2017-10-15] MEDS ORDERED: SUCCINYLCHOLINE 200 MG/10 ML VIAL ONE (19:28)
[2017-10-15] MEDS ORDERED: ETOMIDATE 20 MG/10 ML VIAL IV ONE (19:28)
[2017-10-15] MEDS ORDERED: NOREPINEPHRINE 4 MG/4 ML VIAL IV ONE (19:43)
[2017-10-15] MEDS ORDERED: SODIUM BICARBONATE 50 MEQ/50 ML SYRINGE IV ONE (19:51)
[2017-10-15] MEDS ORDERED: EPINEPHrine 1 MG/10 ML SYRINGE ONE ×2 (20:03→20:04)
[2017-10-15 23:36] VITALS: BP 95/50
[2017-10-16] MEDS ORDERED: methylPREDNISolone SOD SUC 40 MG/1 ML VIAL IV SCH (06:00)
[2017-10-16] MEDS ORDERED: FUROSEMIDE 40 MG TABLET PO SCH (09:00)
== END 2017-10-15 20:07 | disposition expired | DRG 870 ==
LOC: N.ED 17:07 → N.EDINP 19:26 → SUATTDRO 19:26 → N.CC 20:15
PROVIDERS: ADMIT Family Medicine; ATTEND Family Medicine